=== PATIENT | male | born 1985 | race African-American/Black ===

== ENCOUNTER 2016-12-03 21:31 | Emergency (ER) | payer OTHER ==
[~2016-12-03] VITALS: Ht 160 cm; Wt 61.0 kg
[2016-12-03 21:32] VITALS: BP 128/76; PULSE 64; RESP 16; TEMP 97.9; O2SAT 98
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
[2016-12-03] MEDS ORDERED: ROBA500T PO (22:58)
[2016-12-03] MEDS ORDERED: NAPR500 PO (22:58)
== END 2016-12-03 23:14 | disposition home or self-care (01) ==
LOC: NEPB 21:31
DX: S09.90XA Unspecified injury of head, initial encounter (principal); S16.1XXA Strain of muscle, fascia and tendon at neck level, initial encounter; F12.90 Cannabis use, unspecified, uncomplicated; V43.62XA Car passenger injured in collision with other type car in traffic accident, initial encounter; Y92.410 Unspecified street and highway as the place of occurrence of the external cause; Z72.0 Tobacco use
CPT/HCPCS: 70450; 72125